=== PATIENT | female | born 1985 | race Asian ===

== ENCOUNTER 2019-03-30 18:50 | Inpatient (IN) | payer MEDICAID ==
[~2019-03-30] VITALS: Ht 160 cm; Wt 57.6 kg
[2019-03-30 20:20] VITALS: BP 133/94
[2019-03-30] MEDS ORDERED: ferrous sulfate PO (20:24)
[2019-03-30] MEDS ORDERED: PREN-134 PO (20:24)
[2019-03-30] MEDS ORDERED: RINGERS SOLUTION,LACTATED 1,000 ML IV ONE (21:00)
[2019-03-30] MEDS ORDERED: RINGERS SOLUTION,LACTATED 1,000 ML IV SCH (21:00)
[2019-03-30 21:09] LABS: APPEARANCE,URINE CLOUDY (CLEAR); BILIRUBIN,URINE NEGATIVE (NEGATIVE); GLUCOSE, URINE (UA) NEGATIVE (NEGATIVE); KETONES,URINE NEGATIVE (NEGATIVE); LEUKOCYTE ESTERASE ,URINE NEGATIVE (NEGATIVE); NITRATE,URINE NEGATIVE (NEGATIVE); OCCULT BLOOD,URINE NEGATIVE (NEGATIVE); PROTEIN,URINE NEGATIVE (NEGATIVE)
[2019-03-30 21:28] LABS: BASOPHILS % (AUTO) 0.8 % (0.0-2.0); EOSINOPHILS % (AUTO) 0.7 % (1.0-6.0); HEMOGLOBIN 9.6 g/dL (12.0-16.0); LYMPHOCYTES # (AUTO) 1.5 K/uL (1.0-4.8); LYMPHOCYTES % (AUTO) 14.9 % (22.0-44.0); MEAN CORPUSCULAR HEMOGLOBIN 21.9 pg (26.0-34.0); MEAN CORPUSCULAR VOLUME 73 fL (80-100); MONOCYTES # (AUTO) 0.8 K/uL (0.1-1.0); MONOCYTES % (AUTO) 8.4 % (2.0-9.0); NEUTROPHILS # (AUTO) 7.5 K/uL (1.8-7.7); NEUTROPHILS % (AUTO) 75.2 % (40.0-70.0); PLATELET COUNT (AUTO)-OB 355 K/uL (150-450); RED BLOOD CELL COUNT(AUTO) 4.39 MIL/uL (4.00-5.20); RED CELL DISTRIBUTION WIDTH 18.4 % (11.5-14.5)
[2019-03-30] MEDS ORDERED: MAGNESIUM SULFATE 500 ML IV SCH (22:21)
[2019-03-30] MEDS ORDERED: CALCIUM GLUCONATE 100 MG/ML 10 ML IVP PRN (22:30)
[2019-03-30] MEDS ORDERED: MAGNESIUM SULFATE 4 GM/WATER 100 ML IV ONE (22:30)
[2019-03-30] MEDS ORDERED: BETAMETHASONE SOLUSPAN 6 MG/ML 5 ML VIAL IM SCH (22:30)
[2019-03-30] MEDS ORDERED: LIDOCAINE/PF 1% 30 ML VIAL INJ PRN (23:00)
[2019-03-30] MEDS ORDERED: OXYTOCIN 30 UNITS/LACT RINGERS 500 ML IV ONE (23:08)
[2019-03-30] MEDS ORDERED: FentaNYL CITRATE-PF 100 MCG/2 ML VIAL ONE (23:14)
[2019-03-30] MEDS ORDERED: CeFAZolin 2 GM/DEXTROSE 50 ML IV ONE (23:15)
[2019-03-30] MEDS ORDERED: FentaNYL CITRATE-PF 100 MCG/2 ML VIAL IVP ONE (23:30)
[2019-03-31] MEDS ORDERED: GLYCERIN/WITCH HAZEL LEAF 40 PADS JAR TP PRN (00:15)
[2019-03-31] MEDS ORDERED: BENZOCAINE 20%/MENTHOL 56 GM SPRAY CANISTER TP PRN (00:15)
[2019-03-31] MEDS ORDERED: ACETAMINOPHEN/CODEINE 300-30 MG TABLET PO PRN ×2 (00:15)
[2019-03-31] MEDS ORDERED: LANOLIN 7 GM OINTMENT TP PRN (00:15)
[2019-03-31] MEDS ORDERED: MAGNESIUM HYDROXIDE SUSPENSION 30 ML UDCUP PO SCH (09:00)
[2019-03-31 19:14] LABS: RUBELLA SCREEN (IGG) IMMUNE (IMMUNE)
[2019-04-01] MEDS ORDERED: IBUP-2070 PO (11:37)
[2019-04-01] MEDS ORDERED: DSS100 PO (11:38)
== END 2019-04-01 12:20 | disposition home or self-care (01) | DRG 560 ==
LOC: 4S 18:50 → OBSVTOIN 18:50
PROVIDERS: ADMIT Obstetrics & Gynecology; ATTEND Obstetrics & Gynecology
PROC: 10E0XZZ Delivery of Products of Conception, External Approach (ICD-10-PCS; principal; 2019-03-30)
PROC: 0HQ9XZZ Repair Perineum Skin, External Approach (ICD-10-PCS; 2019-03-30)
PROC: 0UQMXZZ Repair Vulva, External Approach (ICD-10-PCS; 2019-03-30)
DX: O60.14X0 Preterm labor third trimester with preterm delivery third trimester, not applicable or unspecified (principal); O62.3 Precipitate labor; O69.82X0 Labor and delivery complicated by other cord entanglement, without compression, not applicable or unspecified; O70.0 First degree perineal laceration during delivery; O71.82 Other specified trauma to perineum and vulva; Z3A.34 34 weeks gestation of pregnancy; Z37.0 Single live birth
CPT/HCPCS: 76700; 76811; 80307; 86592; 86762; 86850; 86900; 86901; 87086; 87340; J0690; J0702; J2590; J3010; J3490; J7120